=== PATIENT | male | born 1990 | race Caucasian/White ===

== ENCOUNTER 2017-05-30 15:30 | Emergency (ER) | payer SELFPAY ==
[2017-05-30 15:31] VITALS: BP 148/103; PULSE 100; RESP 20; TEMP 36.8; O2SAT 100; BMI 29.2
[2017-05-30 15:39] VITALS: O2SAT 99
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
[2017-05-30] MEDS: HYDROcodone Bitartrate/Apap 5/325 Tablet PO (16:02)
[2017-05-30] MEDS: Naproxen 250 MG Tablet 500 MG PO (16:03)
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
[2017-05-30] MEDS: Diphth,Pertuss(Acell),Tet Vac 0.5 ML Vial IM (16:50)
[2017-05-30 17:06] VITALS: BP 140/91; PULSE 95; RESP 22; O2SAT 99
== END 2017-05-30 17:07 | disposition home or self-care (01) ==
PROVIDERS: Emergency Provider Emergency Medicine
DX: S06.0X9A Concussion with loss of consciousness of unspecified duration, initial encounter (principal); S00.83XA Contusion of other part of head, initial encounter; S29.9XXA Unspecified injury of thorax, initial encounter; S80.211A Abrasion, right knee, initial encounter; V49.40XA Driver injured in collision with unspecified motor vehicles in traffic accident, initial encounter; Y93.9 Activity, unspecified; Y92.9 Unspecified place or not applicable; Y99.9 Unspecified external cause status; R03.0 Elevated blood-pressure reading, without diagnosis of hypertension
CPT/HCPCS: 71046; 90715; 99285

== ENCOUNTER 2018-05-03 20:45 | Emergency (ER) | payer BC, SELFPAY ==
[2018-05-03 20:45] VITALS: BP 145/87; PULSE 92; RESP 16; TEMP 35.5; O2SAT 99; BMI 27.3
--- NOTE | 2018-05-03 20:50 | ED.RN ---
RN CALLED FOR EKG, PULLED OLD EKGS FOR
--- NOTE | 2018-05-03 21:32 | EKG12_ITS ---
Test Reason : CP Blood Pressure : / mmHG Vent. Rate : 082 BPM Atrial Rate : 082 BPM P-R Int : 128 ms QRS Dur : 100 ms QT Int : 366 ms P-R-T Axes : 066 091 019 degrees QTc Int : 427 ms Normal sinus rhythm Rightward axis Borderline ECG Confirmed by RAINE SANDOVAL, SAMUEL ([id number]), editorial specialist SARAH KEITH ([id number]) on 05/05/2018 10:05:42 AM Referred By: IRMA Confirmed By:SAMUEL NI MD
--- NOTE | 2018-05-03 21:35 | RAD_ITS ---
STUDY: X-RAY CHEST REASON FOR EXAM: Male, 27 years old. Chest pain TECHNIQUE: AP COMPARISON: May 30, 2017 FINDINGS: The lungs are clear and expanded. Tiny calcified granuloma in right upper lobe There is no demonstrated pleural abnormality. Normal size heart. Normal mediastinum and evangelina. Normal visualized pulmonary arteries. Normal visualized aortic arch and descending thoracic aorta. Normal visualized thoracic spine. Normal visualized ribs, clavicles, and shoulders. There is no demonstrated abnormality of the visualized soft tissue structures of the upper abdomen. No significant change since prior exam RAD/Chest 1 View (Portable) IMPRESSION: No acute cardiopulmonary pathology. Electronically Signed: Kaushik Gardiner MD at 22:04 EST , Service support ,
[2018-05-03] MEDS: Naproxen 500 MG Tablet PO (21:49)
--- NOTE | 2018-05-03 22:12 | ED.VISSUMM ---
- ER Visit Summary Date of Service: 05/03/18 Chief Complaint: Chest pain History of Present Illness: The patient is a 27 M with no primary care physician. He reports that he has diffuse chest pain began 3 weeks ago. Sick continuous sharp, aching pain that waxes and wanes. It is 8 out of 10 at worst and 6 out of 10 currently. Is worsened by movement. Is relieved by a hot shower and Tylenol. Reports is been nausea and vomited once. No diaphoresis. Does report a short of breath at times. This is not related to exertion. He denies any trauma. No fall, MVA, or change in activity. However, he does report that at his work he is lifting constantly. No personal family history of DVT. No recent travel. No ankle swelling or calf pain. This is not pleuritic in nature. Physical Examination: Vitals: Stable. Afebrile. General: Well-nourished and well-developed. Head: Normocephalic atraumatic. Neck: Supple, no lymphadenopathy. No JVD. Nontender. Cardiovascular: Regular rate and rhythm. No murmurs. Respiratory: No respiratory distress. Clear to auscultation bilaterally. Moderate tenderness palpation of the costochondral margin bilaterally that does reproduce his pain. Abdominal: Soft, nontender, nondistended, normal bowel sounds. No guarding, rebound, or peritoneal signs. Back: Nontender. Extremities: Nontender, no edema. Skin: Normal color, no rash. Neurologic: Alert and oriented ?3. Cranial nerves II through XII are intact. Normal strength and sensation. Psych: Normal affect. Test Results: Chest x-ray shows no acute disease. EKG is sinus at 82 with T wave inversion in lead III and nonspecific ST changes. This is unchanged from July 2014. Emergency Department Course and Treatment: Patient was treated with naproxen. He is resting comfortably. Treatment Plan: Patient be discharged instructions follow Dr. Davi Hutchison iii, who is next on the list for no doc, in 1 week if not improving. Return to the emergency department for any worsening symptoms. Disposition: To home in improved and stable condition. Impression: 1. Costochondritis. This note was generated with [employer] software. It may contain incorrect words, spelling, and punctuation that were not noted in review of the chart prior to signing ED Disposition - Plan for ED Patient: Disposition: Home or Assisted Living Instructions: ED Chest Pain Costochondritis Prescriptions: Naproxen [Naprosyn] 500 mg PO BID #14 tablet Referrals: Davi Hutchison III, MD [STAFF PHYSICIAN] - 1 Week if not improving
[2018-05-03 22:52] VITALS: BP 108/81; PULSE 81; RESP 16; O2SAT 98
== END 2018-05-03 22:53 | disposition home or self-care (01) ==
PROVIDERS: Emergency Provider Emergency Medicine
DX: M94.0 Chondrocostal junction syndrome [Tietze] (principal); R11.2 Nausea with vomiting, unspecified; R06.02 Shortness of breath; Z87.891 Personal history of nicotine dependence
CPT/HCPCS: 71045; 93005; 99283

== ENCOUNTER 2018-10-17 22:29 | Emergency (ER) | payer OTHER, BC, SELFPAY ==
[2018-10-17 22:30] VITALS: BP 145/93; PULSE 90; RESP 16; TEMP 36.6; O2SAT 97; BMI 23.9
--- NOTE | 2018-10-17 22:47 | RAD_ITS ---
HISTORY:HIT HAND ON PIPE THURSDAY, PAIN AND SWELLING TO HAND HIT HAND ON PIPE THURSDAY, PAIN AND SWELLING TO HAND COMPARISON: None FINDINGS: # of images incl. paperwork: 3 XR Hand Min 3 Views: Right BONE AND JOINTS: No acute fracture or subluxation. SOFT TISSUES: Unremarkable. No radiopaque foreign body. RAD/Hand Min 3 Views IMPRESSION: No acute pathology If symptoms persist repeat study in 7-10 days or sooner if clinically indicated at 2300 Reported and signed by: Angela Post DO Electronically Signed: Angela Post DO at 22:59 EDT Tel , Service support ,
--- NOTE | 2018-10-17 23:05 | ED.VISSUMM ---
- ER Visit Summary Date of Service: 10/17/18 Chief Complaint: Pain and swelling of left hand History of Present Illness: The patient is a 28 M who presents with a left hand injury. 4 days ago he was carrying a part and slipped on the floor which caused him to shift and hit his hand against 2 pipes. He complains of pain and swelling. No numbness tingling loss of function. Physical Examination: Afebrile vitals unremarkable Heart regular rate Respiratory distress There is some soft tissue swelling and bruising over the back of the left hand no bony deformity no focal bony tenderness active full range of motion normal opposition of the digits brisk capillary refill normal sensation to light touch Test Results: Left hand x-ray shows no acute pathology Emergency Department Course and Treatment: X-ray as above. Patient advised on supportive care including anti-inflammatories, rest, ice, elevation. He was discharged. Treatment Plan: [] Disposition: Discharge Impression: Left hand contusion This note was generated with [employer] dictation software. It may contain incorrect words, spelling, and punctuation that were not noted in review of the chart prior to signing ED Disposition - Plan for ED Patient: Referrals: Stacey Doty [Primary Care Provider] -
--- NOTE | 2018-10-17 23:07 | DCINST.ED_ITS ---
ED Disposition - Plan for ED Patient: Instructions: CONTUSION, Hand Referrals: Stacey Doty [Primary Care Provider] - [facility] [GROUP OF PHYSICIANS] -
--- NOTE | 2018-10-17 23:07 | ED.DEP ---
ED Disposition - Plan for ED Patient: Instructions: CONTUSION, Hand Referrals: Stacey Doty [Primary Care Provider] - [facility] [GROUP OF PHYSICIANS] -
[2018-10-17 23:19] VITALS: PULSE 75; RESP 16
== END 2018-10-17 23:20 | disposition home or self-care (01) ==
LOC: ED 22:54
PROVIDERS: Emergency Provider Emergency Medicine
DX: S60.222A Contusion of left hand, initial encounter (principal); W01.10XA Fall on same level from slipping, tripping and stumbling with subsequent striking against unspecified object, initial encounter; Y93.9 Activity, unspecified; Y92.9 Unspecified place or not applicable; Y99.9 Unspecified external cause status; Z72.0 Tobacco use
CPT/HCPCS: 73130; 99282

== ENCOUNTER 2018-11-16 21:40 | Emergency (ER) | payer BC, SELFPAY ==
[2018-11-16 21:40] VITALS: BP 120/96; PULSE 120; RESP 18; TEMP 36.8; O2SAT 97; BMI 29.0
--- NOTE | 2018-11-16 22:47 | ED.VISSUMM ---
- ER Visit Summary Date of Service: 11/16/18 Chief Complaint: [Sore throat and not feeling well.] History of Present Illness: The patient is a 28 M [presents the emergency department with symptoms that started 2 days ago. Patient states that he really did not feel well yesterday so he called off work. Patient try to go back to work today and was told to come and get checked out. Patient complains of generalized fatigue as well as some mild nausea. States he threw up once yesterday but it was mostly just liquid. He said no diarrhea. He denies any fever although subjectively he is felt hot at home. Patient does describe a sore throat today. Patient states that he has had similar symptoms in the past when he had strep throat. He denies any significant cough. Patient has history of migraines. Patient has history of hypertension. He denies any chest pain or significant abdominal pain.] Physical Examination: [HEENT-PERRLA, EOMI. Cranial nerves II through XII grossly intact. TMs clear. Mucous membranes moist. No adenopathy. Patient has mild pharyngeal erythema. No tonsillar exudates noted. Uvula midline without trismus. No significant adenopathy. Cardiovascular-regular rate and rhythm without murmur or ectopy Lungs-clear to auscultation, chest wall stable without crepitus or subcu emphysema Abdomen-normoactive bowel sounds, soft, nontender, no rebound or rigidity, no peritoneal signs. Extremities-intact ?4, normal range of motion, normal pulses, atraumatic] Test Results: [Rapid strep screen performed and was negative.] Emergency Department Course and Treatment: [] Treatment Plan: [Patient advised to use ibuprofen or Tylenol for discomfort. Patient advised to push fluids.] Disposition: [Discharged home in stable condition.] Impression: [Pharyngitis-viral] This note was generated with [employer] dictation software. It may contain incorrect words, spelling, and punctuation that were not noted in review of the chart prior to signing ED Disposition - Plan for ED Patient: Referrals: Stacey Doty [Primary Care Provider] -
--- NOTE | 2018-11-16 23:27 | ED.DEP ---
ED Disposition - Plan for ED Patient: Instructions: PHARYNGITIS, Viral Referrals: Stacey Doty [Primary Care Provider] - 5-7 Days
[2018-11-16 23:36] VITALS: BP 131/91; PULSE 70; RESP 15; O2SAT 96
== END 2018-11-16 23:37 | disposition home or self-care (01) ==
LOC: ED 22:59
PROVIDERS: Emergency Provider Emergency Medicine; Referring Provider Nurse Practitioner Family
DX: J02.8 Acute pharyngitis due to other specified organisms (principal); R11.0 Nausea; I10 Essential (primary) hypertension; F17.290 Nicotine dependence, other tobacco product, uncomplicated
CPT/HCPCS: 87880; 99282

== ENCOUNTER 2019-08-31 21:47 | Emergency (ER) | payer OTHER, BC, SELFPAY ==
[2019-08-31 21:48] VITALS: BP 147/76; PULSE 95; RESP 20; TEMP 36.3; O2SAT 96; BMI 27.3
--- NOTE | 2019-08-31 22:05 | ED.DCSUM_ITS ---
History of Present Illness Chief Complaint: Lower Extremity Injury Informant: Patient Onset: Today Current Severity: Moderate Maximum Severity: Moderate Narrative: Patient presents after injury to right knee. He was at work tonight when his foot slipped and his knee hyperextended. He is complaining of pain diffusely around the knee. He has antalgic gait. Patient does report a history of knee problems but states he has had multiple imaging studies with no definitive cause of his pain. Past Medical History - Allergies and Home Meds Allergies/Adverse Reactions: Allergies No Known Allergies Allergy (Verified 10/17/18 22:32) Primary Care Physician: NOT,DEFINED [NON-STAFF] - Past Medical History: - - Chronic right knee pain Smoking Status: Current every day smoker Review of Systems General: Denies: Chills, Fever Eyes: Denies: Visual changes - bilaterally ENT: Denies: Bilateral ear pain Cardiovascular: Denies: Chest pain Respiratory: Denies: Dyspnea, Cough Gastrointestinal: Denies: Abdominal pain, Nausea, Vomiting, Diarrhea Musculoskeletal: Reports: Extremity Pain Skin: Denies: Rash Neurological: Denies: Headache, Parasthesia Hematologic: Denies: Easy bruising, Easy bleeding Allergy: Denies: Uticaria Physical Exam Vital Signs/Narrative: Vital Signs Temp Pulse Resp BP Pulse Ox 08/31/19 21:48 97.4 F L 95 20 H 147/76 H 96 Inital Vital Signs reviewed: Yes General: Well nourished, Well developed Head: Normocephalic ENT: Moist mucous membranes Neck: Supple Cardiovascular: Regular rate, Regular rhythm Respiratory: No distress Abdomen: Soft Extremities: - - Mild diffuse tenderness of the anterior right knee. No significant edema noted. Ligaments tight on testing. Strong distal pulses noted. Neurological: Alert, Oriented x3 Psychological: Normal affect Diagnostic/Tx/Re-eval Impressions Knee X-Ray 08/31/19 22:15 IMPRESSION: Normal x-ray examination of the knee. Electronically Signed: Donovan Kohli MD at 22:28 EDT , Service support , 08/31/19 22:15 Knee 4 or More Views [RAD] Stat - Medical Decision Making She was given naproxen here for pain. Advised the patient that although his x- rays are normal there are many structures in the knee that are not visible on x- ray. He was placed in an Hans wrap. He declines the need for crutches. He is given work restrictions and will follow-up with [facility]. I did advise him that if he continues to have problems they would refer him onto orthopedics as needed. ED Disposition - Plan for ED Patient: Disposition: Home or Assisted Living Diagnosis: Right knee sprain Instructions: ED Sprain Knee Referrals: [facility] [GROUP OF PHYSICIANS] - 3-5 Days
--- NOTE | 2019-08-31 22:15 | RAD_ITS ---
STUDY: X-RAY - RIGHT KNEE REASON FOR EXAM: Male, 29 years old. RIGHT KNEE PAIN AFTER SLIPPING ON OIL AT WORK TECHNIQUE: 4 view(s) of the knee. COMPARISON: None. FINDINGS: Normal visualized distal femur. Normal visualized proximal tibia and fibula. Normal proximal tibiofibular articulation. There is no demonstrated fracture. Normal medial femorotibial compartment. Normal lateral femorotibial compartment. Normal patellofemoral articulation. The soft tissue structures are unremarkable. RAD/Knee 4 or More Views IMPRESSION: Normal x-ray examination of the knee. Electronically Signed: Donovan Kohli MD at 22:28 EDT , Service support ,
[2019-08-31] MEDS: Naproxen 500 MG Tablet PO (22:46)
[2019-08-31 22:50] VITALS: BP 132/72; PULSE 76; RESP 16; O2SAT 97
[2019-08-31 22:52] VITALS: BP 132/74; PULSE 74; RESP 16; O2SAT 97
== END 2019-08-31 23:10 | disposition home or self-care (01) ==
PROVIDERS: Emergency Provider Emergency Medicine
DX: S83.91XA Sprain of unspecified site of right knee, initial encounter (principal); G89.29 Other chronic pain; W18.40XA Slipping, tripping and stumbling without falling, unspecified, initial encounter; Y93.9 Activity, unspecified; Y92.9 Unspecified place or not applicable; Y99.0 Civilian activity done for income or pay; F17.200 Nicotine dependence, unspecified, uncomplicated
CPT/HCPCS: 73564; 99282

== ENCOUNTER → 2019-09-23 17:39 | Outpatient (CLI) | payer BC, SELFPAY ==
[2019-09-23 10:39] VITALS: BMI 27.3
== END ==
LOC: MTDU 17:39
PROVIDERS: Visit Provider Physician Assistant Surgical
DX: Z20.828 Contact with and (suspected) exposure to other viral communicable diseases (principal)
CPT/HCPCS: 87635; G2023; U0003